=== PATIENT | female | born 1960 | race Asian ===

== ENCOUNTER 2025-04-01 21:37 | Emergency (ER) | payer MEDICARE, BC ==
[~2025-04-01] VITALS: Ht 152.4 cm; Wt 51.3 kg
[2025-04-01] MEDS ORDERED: HYDR-3980 PO (22:40)
[2025-04-01] MEDS ORDERED: ONDA4TAB11 PO (22:40)
[2025-04-01] MEDS ORDERED: ONDANSETRON ODT 4 MG TAB.RAPDIS ONE (22:44)
[2025-04-01] MEDS ORDERED: HYDROCODONE/APAP 10-325 MG TABLET ONE (22:44)
[2025-04-01] MEDS: ONDANSETRON ODT 4 MG TAB.RAPDIS SL ONE (22:47)
[2025-04-01] MEDS: HYDROCODONE/APAP 10-325 MG TABLET PO ONE (22:47)
[2025-04-01 23:55] VITALS: BP 128/76
[2025-04-01 23:56] VITALS: BP 132/78; TEMP 98; O2SAT 98
== END 2025-04-01 23:58 | disposition home or self-care (01) ==
LOC: ER 21:45
DX: M17.11 Unilateral primary osteoarthritis, right knee (principal); E11.9 Type 2 diabetes mellitus without complications; Z79.52 Long term (current) use of systemic steroids; Z60.2 Problems related to living alone
CPT/HCPCS: A4606; A4663; Q0162